=== PATIENT | female | born 1960 | race Caucasian/White ===

== ENCOUNTER → 2017-04-04 | Outpatient (CLI) | payer OTHER ==
[~2017-04-04] MED LIST: ABILIFY2 MG PO; ABILIFY5 MG PO; ADULT LOW STREN81 M2 PO; ALBUTEROL17 GM IH; AMBIEN10 MG PO; ARIPIPRAZOLE2 MG PO; ASPIR 8181 M1 PO; ASPIR-LOW81 MG PO; ASPIR-MOX 325325 MG PO; ASPIRIN81 M1 PO; ATARAX,VISTARIL25 MG PO; ATORVASTATIN CA40 MG PO; AUGMENTIN875 MG PO; BENTYL20 MG PO; BREO ELLIPTA I1 EACH IH; BUTALBITAL-APA1 EACH PO; BYSTOLIC5 MG PO; CARVEDILOL12.5 MG PO; CEFTIN500 MG PO; CILOSTAZOL PO; CIPRO250 MG PO; CLEOCIN300 MG PO; CLONAZEPAM1 MG PO; CLOPIDOGREL75 MG PO; DIAZEPAM5 MG PO; DICYCLOMINE HCL20 MG PO; DULOXETINE HCL60 MG PO; ESCITALOPRAM OXA5 MG PO; EXTRA STRENGTH500 M1 PO; FIORICET,ESG1 TABLET PO; FLEXERIL10 MG PO; FLORA-Q CAPSUL1 EAC1 PO; IBUPROFEN600 MG PO; KLONOPIN0.5 M1; LAMICTAL200 MG PO; LAMICTAL25 MG PO; LAMOTRIGINE200 MG PO; LASIX20 MG PO; LASIX40 MG PO; LEVAQUIN750 MG PO; LEXAPRO5 MG PO; LIDODERM 5% P1 PATCH TD; LIPITOR40 MG PO; LIPITOR80 MG PO; MOTRIN600 MG PO; MULTIVITAMIN1 EAC1 PO; NEXIUM40 MG PO; NITROGLYCERIN0.4 MG PO; NITROSTAT0.4 MG SL; OXYGEN MC; PANTOPRAZOLE SO40 MG PO; PLAVIX75 MG PO; PREDNISONE10 MG PO; PREVACID30 MG PO; PROAIR HFA8.5 GM; PROTONIX40 MG PO; PROVENTIL,2.5 MG/3 M IH; PROVENTIL17 GM IH; RANITIDINE HCL300 MG PO; Rocephin IV; SYMBICORT60 INHALAT IH; TOPAMAX100 MG PO; TOPIRAMATE50 MG PO; TRAZODONE HCL50 MG PO; TYLENOL EXTRA500 MG PO; VALIUM5 MG PO; Valium PO; ZEBUTAL 50-3251 EACH PO; ZOLPIDEM TARTRATE PO; [UNRECOGNIZED DRUG - OTHER] PO; [UNRECOGNIZED DRUG - SUPPLY] MC
== END | disposition home or self-care (01) ==
LOC: NUC 10:07
DX: R06.09 Other forms of dyspnea (principal)
CPT/HCPCS: 71020; 78582; A9540; A9567

== ENCOUNTER 2017-05-18 11:02 | Observation (INO) | payer OTHER ==
[~2017-05-18] VITALS: Ht 162.6 cm; Wt 89.0 kg
[~2017-05-18 11:02] MED LIST changes: -PANTOPRAZOLE SO40 MG PO
[2017-05-18 11:48] LABS: HEMATOCRIT 40.6 % (36.0-46.0); MCH 31.3 PG (29.0-34.0); MCHC 33.5 G/DL (30.0-36.0); MCV 93.5 FL (83-99); MEAN PLAT.VOLUME 9.8 uM^3 (9.5-12.4); PLATELET COUNT 258 K/uL (156-360); RBC DIS.WIDTH-CV 12.1 % (11.8-14.6); RBC DIS.WIDTH-SD 41.5 % (39-53); RED BLOOD COUNT 4.34 M/uL (3.80-5.20); WHITE BLOOD COUNT 6.4 K/uL (4.1-10.2)
[2017-05-18 12:00] LABS: CHLORIDE 104 mEq/L (99-109); POTASSIUM 4.3 mEq/L (3.7-5.4); SODIUM 139 mEq/L (136-147)
[2017-05-18 12:02] LABS: GLUCOSE 110 mg/dL (70-99)
[2017-05-18 12:04] LABS: ANION GAP 13 MEQ/L (2-14)
[2017-05-18 12:06] LABS: GFR ESTIMATE (CALCULATED) > 59 mL/min/
[2017-05-18 12:07] LABS: UREA NITROGEN (BUN) 10 mg/dL (9-23)
[2017-05-18 12:12] LABS: TROP-I INTERPRETATION NEGATIVE; TROPONIN-I 0.07 ng/mL (0.0-0.30)
[2017-05-18 12:42] LABS: MAGNESIUM 2.1 mg/dL (1.3-2.7)
[2017-05-18 14:37] LABS: D-DIMER ELISA < 150.00 ng/mLDDU (<230)
[2017-05-18] MEDS ORDERED: ASPIR-LOW81 MG PO (14:38)
[2017-05-18] MEDS ORDERED: TRAZODONE HCL50 MG PO (14:40)
[2017-05-18] MEDS ORDERED: VENLAFAXINE H37.5 M3 PO (14:40)
[2017-05-18] MEDS ORDERED: METFORMIN HCL500 M1 PO (14:40)
[2017-05-18] MEDS ORDERED: ALBUTEROL2.5 MG/3 M IH (14:41)
[2017-05-18] MEDS ORDERED: PROAIR HFA8.5 GM IH (14:49)
[2017-05-18 15:10] VITALS: BP 121/57
[2017-05-18 16:12] LABS: Estimated Average Glucose 143 mg/dL (70-123); HEMOGLOBIN A1c (GLYCOHEMOGLOB) 6.6 % HGB (Below 5.7)
[2017-05-18 16:26] LABS: TROP-I INTERPRETATION NEGATIVE; TROPONIN-I 0.07 ng/mL (0.0-0.30)
[2017-05-18 17:32] LABS: POINT-OF-CARE METER ID UU14162513
[2017-05-18 19:04] VITALS: BP 92/58
[2017-05-18 19:47] LABS: ADD MIUA? YES; BILIRUBIN NEGATIVE; BLOOD NEGATIVE; COLOR YELLOW ((YELLOW)); GLUCOSE (STRIP) NEGATIVE; KETONES NEGATIVE; LEUKOCYTES MODERATE; NITRITE NEGATIVE; PROTEIN (STRIP) NEGATIVE; UROBILINOGEN 0.2 MG/DL (0.2-1.0)
[2017-05-18 19:48] LABS: POINT-OF-CARE METER ID UU14162513
[2017-05-18 20:09] LABS: BACTERIA NONE SEEN /HPF; CALCIUM OXALATE CRYSTALS 2+ /HPF; EPITHELIAL CELLS 1+ /HPF; HYALINE CASTS 0-5 /LPF; MUCUS 1+ /LPF; RED BLOOD CELLS 15-20 /HPF (0-5); UCUL ADDED? NO; WHITE BLOOD CELLS 15-20 /HPF (0-5)
[2017-05-18 20:21] LABS: TOTAL BILIRUBIN 0.3 mg/dL (0.0-1.0)
[2017-05-18 20:22] LABS: ALKALINE PHOSPHATASE 68 IU/L (3-129)
[2017-05-18 20:25] LABS: DIRECT BILIRUBIN 0.1 mg/dL (0.0-0.3)
[2017-05-18 20:49] LABS: METH RESISTANT S AUREUS PCR NEGATIVE (NEGATIVE)
[2017-05-18 20:52] LABS: PROBE CHECK PASS; SPECIMEN PROCESSING CONTROL PASS
[2017-05-18 21:48] LABS: POINT-OF-CARE METER ID UU14162513
[2017-05-19 00:04] VITALS: BP 106/55
[2017-05-19 01:09] LABS: TROP-I INTERPRETATION NEGATIVE; TROPONIN-I 0.07 ng/mL (0.0-0.30)
[2017-05-19 03:11] VITALS: BP 96/53
[2017-05-19 07:15] LABS: TROP-I INTERPRETATION NEGATIVE; TROPONIN-I 0.07 ng/mL (0.0-0.30)
[2017-05-19 08:26] LABS: POINT-OF-CARE METER ID UU13113700
[2017-05-19 08:39] VITALS: BP 113/59
[2017-05-19] MEDS ORDERED: METOPROLOL SUCC25 MG PO (11:09)
[2017-05-19] MEDS ORDERED: ELIQUIS5 MG PO (11:11)
[2017-05-19] MEDS ORDERED: CIPROFLOXACIN250 MG PO (11:28)
[2017-05-19] MEDS ORDERED: BACTRIM,SEPT1 TABLET PO (11:57)
== END 2017-05-19 12:52 | disposition home or self-care (01) ==
LOC: EME 11:02 → EDOF 14:09 → 5WEST 14:09 → EDOF 14:09 → ENRESERV 14:09 → 5WEST 14:53 → ENPENDDIS 05-19 11:38 → 5WEST 05-19 12:52
PROVIDERS: Hospitalist; Physician Assistant Medical
DX: R07.9 Chest pain, unspecified (principal); I48.0 Paroxysmal atrial fibrillation; R06.02 Shortness of breath; R10.11 Right upper quadrant pain; I25.10 Atherosclerotic heart disease of native coronary artery without angina pectoris; Z95.5 Presence of coronary angioplasty implant and graft; I10 Essential (primary) hypertension; J44.9 Chronic obstructive pulmonary disease, unspecified; E78.5 Hyperlipidemia, unspecified; E11.9 Type 2 diabetes mellitus without complications; K21.9 Gastro-esophageal reflux disease without esophagitis; I69.854 Hemiplegia and hemiparesis following other cerebrovascular disease affecting left non-dominant side; E66.9 Obesity, unspecified; Z68.33 Body mass index [BMI] 33.0-33.9, adult; Z88.0 Allergy status to penicillin; Z88.1 Allergy status to other antibiotic agents; Z88.5 Allergy status to narcotic agent; Z91.013 Allergy to seafood; Z91.041 Radiographic dye allergy status; Z91.040 Latex allergy status
CPT/HCPCS: 71020; 74176; 80048; 80076; 80306 90; 81003; 82948; 83036; 83690; 83735; 83880; 84443; 84484; 85027; 85379; 87641; 93005; 94640; 99281; 99283; G0378